=== PATIENT | male | born 1995 | race Caucasian/White ===

== ENCOUNTER 2017-01-28 20:55 | Emergency (ER) | payer OTHER ==
[~2017-01-28] VITALS: Ht 180.3 cm; Wt 65.8 kg
[2017-01-28] MEDS ORDERED: NS 1,000 ML IV ONE (21:15)
[2017-01-28] MEDS ORDERED: ONDANSETRON 4MG/2ML VIAL (J2405) IV ONE (21:15)
[2017-01-28 21:53] LABS: BASO % 0.7 % (0.0-1.0); EOS # 0.2 K/mm3 (0.0-0.50); EOS % 2.1 % (0.0-3.0); LARGE UNSTAINED CELL # 0.1 K/mm3 (0.0-0.4); LARGE UNSTAINED CELL % 1.5 % (0.0-4.0); LYMPH # 1.9 K/mm3 (1.5-6.5); LYMPH % 22.6 % (24.0-44.0); MEAN CORPUSCULAR HEMOGLOBIN 31.3 pg (27.0-33.0); MEAN CORPUSCULAR HGB CONC 33.2 g/dl (32.0-36.5); MEAN CORPUSCULAR VOLUME 94.3 fl (80.0-96.0); MONO # 0.3 K/mm3 (0.0-0.8); MONO % 4.1 % (0.0-5.0); NEUTROPHILS # 5.3 K/mm3 (1.8-7.7); PLATELET COUNT, AUTOMATED 217 k/mm3 (150-450); WHITE BLOOD COUNT 7.7 K/mm3 (4.0-10.0)
[2017-01-28] MEDS ORDERED: IBUP600T26 PO (21:54)
[2017-01-28 22:03] LABS: METHADONE URINE NEGATIVE (NEGATIVE)
[2017-01-28 22:14] LABS: ALBUMIN/GLOBULIN RATIO 1.29 (1.00-1.93); ALKALINE PHOSPHATASE 59 U/L (45-117); ALT/SGPT 17 U/L (12-78); ANION GAP 11 MEQ/L (8-16); AST/SGOT 12 U/L (15-37); BILIRUBIN,DIRECT < 0.1 MG/DL (0.0-0.2); BILIRUBIN,TOTAL 0.3 MG/DL (0.2-1.0); BLOOD UREA NITROGEN 9 MG/DL (7-18); CALCIUM LEVEL 7.9 MG/DL (8.5-10.1); CARBON DIOXIDE LEVEL 25 MEQ/L (21-32); CHLORIDE LEVEL 103 MEQ/L (98-107); CREATININE FOR GFR 0.79 MG/DL (0.70-1.30); GLOMERULAR FILTRATION RATE > 60.0 (>60); GLUCOSE, FASTING 119 MG/DL (70-105); POTASSIUM SERUM 3.5 MEQ/L (3.5-5.1); SODIUM LEVEL 139 MEQ/L (136-145); TOTAL PROTEIN 7.1 GM/DL (6.4-8.2)
[2017-01-29 02:46] VITALS: BP 104/55
== END 2017-01-29 02:50 | disposition home or self-care (01) ==
LOC: EDBD 20:55 → M ED 21:40
DX: F10.129 Alcohol abuse with intoxication, unspecified (principal); F32.9 Major depressive disorder, single episode, unspecified; F90.9 Attention-deficit hyperactivity disorder, unspecified type; F41.9 Anxiety disorder, unspecified; F42.9 Obsessive-compulsive disorder, unspecified; F43.10 Post-traumatic stress disorder, unspecified

== ENCOUNTER 2017-03-05 20:03 | Emergency (ER) | payer OTHER ==
[~2017-03-05] VITALS: Ht 180.3 cm; Wt 66.9 kg
[~2017-03-05 20:03] MED LIST: IBUP-1022 PO
[2017-03-05 21:52] VITALS: BP 137/76
--- NOTE | 2017-03-06 07:40 | REP ---
Clinical: Pain with decreased range of motion . Technique: Internal rotation, external rotation, and Y view right shoulder . Findings: No acute fracture or dislocation. The acromioclavicular and glenohumeral joints are intact. No periarticular calcifications or degenerative changes are appreciated. Sub acromial space is normal. Surrounding soft tissues are unremarkable. Impression: Normal right shoulder radiographs. Signed by Moises Kay MD 03/06/2017 07:31 A
== END 2017-03-05 22:39 | disposition home or self-care (01) ==
LOC: M ED 20:03
DX: S43.51XA Sprain of right acromioclavicular joint, initial encounter (principal); X58.XXXA Exposure to other specified factors, initial encounter; Y92.099 Unspecified place in other non-institutional residence as the place of occurrence of the external cause; Y93.9 Activity, unspecified; Y99.9 Unspecified external cause status; F32.9 Major depressive disorder, single episode, unspecified; F17.200 Nicotine dependence, unspecified, uncomplicated

== ENCOUNTER 2017-07-26 00:31 | Emergency (ER) | payer OTHER ==
[~2017-07-26] VITALS: Ht 177.8 cm; Wt 65.9 kg
[2017-07-26] MEDS ORDERED: OLOP1OPD OU (05:38)
[2017-07-26 06:24] VITALS: BP 116/73
== END 2017-07-26 06:25 | disposition home or self-care (01) ==
LOC: M ED 00:31
DX: H10.11 Acute atopic conjunctivitis, right eye (principal); F17.200 Nicotine dependence, unspecified, uncomplicated

== ENCOUNTER 2018-03-30 17:02 | Emergency (ER) | payer OTHER ==
[2018-03-30] MEDS: KETOROLAC TROMETHAMINE 10 MG TAB PO (18:35)
== END 2018-03-30 20:02 | disposition home or self-care (01) ==
LOC: M ED 17:02
DX: M25.561 Pain in right knee (principal); F32.9 Major depressive disorder, single episode, unspecified; Z72.0 Tobacco use; F12.10 Cannabis abuse, uncomplicated
CPT/HCPCS: 73564

== ENCOUNTER 2018-10-09 14:33 | Emergency (ER) | payer OTHER ==
[~2018-10-09] VITALS: Ht 175.3 cm; Wt 72.7 kg
[2018-10-09 14:33] VITALS: BP 118/69
[~2018-10-09 14:33] MED LIST changes: +DICL75TA PO; +OLOP1OPD OU
[2018-10-09] MEDS ORDERED: DERMABOND TOPICAL SKIN ADHESIVE TOP ONE (16:30)
[2018-10-09] MEDS ORDERED: KETOROLAC 60 MG/2 ML VIAL (J1885) IM ONE (16:30)
[2018-10-09] MEDS ORDERED: IBUP-1114 PO (17:18)
--- NOTE | 2018-10-10 09:59 | REP ---
RIGHT HAND SERIES: Four views of the right hand are performed and demonstrate no fracture, dislocation, or intrinsic bone disease. No radiopaque foreign body is seen. IMPRESSION: Negative exam right hand. Electronically Signed by Lexa Bosch MD 10/10/2018 10:38 P
== END 2018-10-09 17:37 | disposition home or self-care (01) ==
LOC: M ED 14:33
DX: S61.011A Laceration without foreign body of right thumb without damage to nail, initial encounter (principal); W25.XXXA Contact with sharp glass, initial encounter; Y92.89 Other specified places as the place of occurrence of the external cause; Y93.89 Activity, other specified; F17.200 Nicotine dependence, unspecified, uncomplicated
CPT/HCPCS: 12001; 73130; 96372; 99282; J1885

== ENCOUNTER → 2018-11-03 | Outpatient (REF) | payer OTHER ==
[~2018-11-03] MED LIST changes: +IBUP-1114 PO
[2018-11-03 18:51] LABS: BASO # 0.1 10^3/uL (0.0-0.2); BASO % 0.6 % (0.0-1.0); EOS # 0.4 10^3/uL (0.0-0.50); EOS % 3.8 % (0.0-3.0); HEMATOCRIT 43.9 % (42.0-52.0); HEMOGLOBIN 14.7 g/dl (13.5-17.5); LYMPH # 2.4 10^3/uL (1.5-6.5); LYMPH % 23.9 % (24.0-44.0); MEAN CORPUSCULAR HEMOGLOBIN 31.2 pg (27.0-33.0); MEAN CORPUSCULAR HGB CONC 33.5 g/dl (32.0-36.5); MEAN CORPUSCULAR VOLUME 93.2 fl (80.0-96.0); MONO # 0.8 10^3/uL (0.0-0.8); MONO % 8.1 % (0.0-5.0); NEUTROPHILS # 6.4 10^3/uL (1.8-7.7); NEUTROPHILS % 63.3 % (36.0-66.0); PLATELET COUNT, AUTOMATED 306 10^3/uL (150-450); RED BLOOD COUNT 4.71 10^6/uL (4.30-6.10); WHITE BLOOD COUNT 10.1 10^3/uL (4.0-10.0)
[2018-11-03 18:57] LABS: APPEARANCE, URINE CLEAR (CLEAR); BACTERIA, URINE AUTO NEGATIVE (NEGATIVE); BILIRUBIN, URINE AUTO NEGATIVE (NEGATIVE); BLOOD, URINE BLOOD NEGATIVE (NEGATIVE); COLOR, URINE YELLOW (YELLOW); GLUCOSE, URINE (UA) AUTO NEGATIVE (NEGATIVE); KETONE, URINE AUTO NEGATIVE (NEGATIVE); LEUKOCYTE ESTERASE, URINE AUTO NEGATIVE (NEGATIVE); MUCUS, URINE SMALL (NEGATIVE); NITRITE, URINE AUTO NEGATIVE (NEGATIVE); PROTEIN, URINE AUTO NEGATIVE (NEGATIVE); RBC, URINE AUTO 1 /HPF (0-3); SPECIFIC GRAVITY URINE AUTO 1.028 (1.002-1.035); SQUAMOUS EPITHELIAL CELL UR AU 0 /HPF (0-6); UROBILINOGEN, URINE AUTO 0.2 mg/dL (0.0-2.0); WBC, URINE AUTO 1 /HPF (0-3)
[2018-11-03 19:08] LABS: ALBUMIN 4.2 GM/DL (3.2-5.2); ALT/SGPT 19 U/L (12-78); BILIRUBIN,TOTAL 0.3 MG/DL (0.2-1.0); BLOOD UREA NITROGEN 12 MG/DL (7-18); CALCIUM LEVEL 8.6 MG/DL (8.5-10.1); CARBON DIOXIDE LEVEL 28 MEQ/L (21-32); CHLORIDE LEVEL 106 MEQ/L (98-107); CHOLESTEROL LEVEL 157 MG/DL (<200); CHOLESTEROL RISK RATIO 4.025 (<5); CREATININE FOR GFR 0.87 MG/DL (0.70-1.30); FREE T4 0.98 NG/DL (0.76-1.46); GLOMERULAR FILTRATION RATE > 60.0 (>60); GLUCOSE, FASTING 102 MG/DL (70-100); HDL CHOLESTEROL 39 MG/DL (>40); LDL CHOLESTEROL 106 MG/DL (<100); NON-HDL-C 118 MG/DL; POTASSIUM SERUM 4.1 MEQ/L (3.5-5.1); SODIUM LEVEL 141 MEQ/L (136-145); THYROID STIMULATING HORMONE 0.417 uIU/ML (0.358-3.740); TOTAL 25(OH) VITAMIN D 18.9 NG/ML (30.0-100.0); TOTAL PROTEIN 7.4 GM/DL (6.4-8.2); TRIGLYCERIDES LEVEL 62 MG/DL (<150)
[2018-11-03 19:39] LABS: HEMOGLOBIN A1c 5.2 %
[2018-11-06 00:07] LABS: Lyme Disease IgG/IgM Antibodie <0.91 ISR (0.00-0.90); Lyme Disease IgM Ab Quantitati <0.80 index (0.00-0.79)
== END ==
LOC: M LAB REF 17:02
DX: Z00.01 Encounter for general adult medical examination with abnormal findings (principal); F41.8 Other specified anxiety disorders

== ENCOUNTER 2020-01-16 21:52 | Emergency (ER) | payer MEDICAID, OTHER ==
[~2020-01-16] VITALS: Ht 193 cm; Wt 74.5 kg
[~2020-01-16 21:52] MED LIST changes: -OLOP1OPD OU; +PATA2.5S OU
[2020-01-16] MEDS ORDERED: IBUPROFEN 600MG TAB PO ONE (23:15)
[2020-01-16] MEDS ORDERED: ACET-897 PO (23:23)
[2020-01-16 23:35] VITALS: BP 112/61
--- NOTE | 2020-01-17 08:02 | REP ---
RIGHT HAND SERIES: Four views. HISTORY: Pain. Comparison radiographs October 09, 2018. FINDINGS: Four views of the right hand demonstrate impacted fractures of the distal ends of the 4th and 5th metacarpals with associated soft-tissue swelling. There is apex dorsal angulation at the fracture is visible on the lateral radiograph. No other fracture is seen. IMPRESSION: Impacted slightly angulated fractures of the distal ends of the 4th and 5th metacarpals. Electronically Signed by Jean-Claude Richards MD 01/17/2020 11:58 A
== END 2020-01-16 23:44 | disposition home or self-care (01) ==
LOC: M ED 21:52
DX: S62.304A Unspecified fracture of fourth metacarpal bone, right hand, initial encounter for closed fracture (principal); S62.306A Unspecified fracture of fifth metacarpal bone, right hand, initial encounter for closed fracture; W22.8XXA Striking against or struck by other objects, initial encounter; Y92.018 Other place in single-family (private) house as the place of occurrence of the external cause; Z88.0 Allergy status to penicillin; Z91.048 Other nonmedicinal substance allergy status

== ENCOUNTER 2023-04-07 12:31 | Inpatient (IN) | payer MEDICAID, SELFPAY ==
[~2023-04-07] VITALS: Ht 185.4 cm; Wt 72.7 kg
[~2023-04-07 12:31] MED LIST changes: +ACET-897 PO
[2023-04-07 14:13] LABS: HEMATOCRIT 42.6 % (42.0-52.0); HEMOGLOBIN 14.4 g/dl (13.5-17.5); MEAN CORPUSCULAR HEMOGLOBIN 30.8 pg (27.0-33.0); MEAN CORPUSCULAR HGB CONC 33.8 g/dl (32.0-36.5); MEAN CORPUSCULAR VOLUME 91.2 fl (80.0-96.0); PLATELET COUNT, AUTOMATED 502 10^3/uL (150-450); RED BLOOD COUNT 4.67 10^6/uL (4.30-6.10); WHITE BLOOD COUNT 12.1 10^3/uL (4.0-10.0)
[2023-04-07 14:41] LABS: AMPHETAMINES LEVEL URINE NEGATIVE (NEGATIVE); BARBITURATES URINE NEGATIVE (NEGATIVE); BENZODIAZEPINES URINE NEGATIVE (NEGATIVE); COCAINE METABOLITE URINE NEGATIVE (NEGATIVE); METHADONE URINE NEGATIVE (NEGATIVE); OPIATES URINE NEGATIVE (NEGATIVE); PHENCYCLIDINE URINE NEGATIVE (NEGATIVE)
[2023-04-07 14:44] LABS: ETHYL ALCOHOL (ETHANOL) < 0.003 % (0.000-0.010)
[2023-04-07 14:45] LABS: ACETAMINOPHEN LEVEL < 2.0 UG/ML (10.0-20.0)
[2023-04-07] MEDS ORDERED: MED REC IN PROGRESS XX SCH (14:45)
[2023-04-07 14:46] LABS: ALBUMIN 4.3 G/DL (3.2-5.2); ALKALINE PHOSPHATASE 73 U/L (46-116); ALT/SGPT 10 U/L (7.0-40); AST/SGOT < 8 U/L (<34); BILIRUBIN,DIRECT 0.2 MG/DL (<0.4); BILIRUBIN,TOTAL 0.5 MG/DL (0.3-1.2); BLOOD UREA NITROGEN 10 MG/DL (9-23); CALCIUM LEVEL 9.8 MG/DL (8.5-10.1); CARBON DIOXIDE LEVEL 25 MMOL/L (20-31); CHLORIDE LEVEL 106 MMOL/L (98-107); CREATININE FOR GFR 0.75 MG/DL (0.70-1.30); GLOMERULAR FILTRATION RATE > 60.0 (>60); GLUCOSE, FASTING 82 MG/DL (60-100); POTASSIUM SERUM 3.8 MMOL/L (3.5-5.1); SALICYLATE LEVEL < 3.0 MG/DL (<30); SODIUM LEVEL 140 MMOL/L (136-145); TOTAL PROTEIN 7.3 G/DL (5.7-8.2)
[2023-04-07 14:47] LABS: THYROID STIMULATING HORMONE 0.733 uIU/ML (0.55-4.78)
[2023-04-07] MEDS ORDERED: NASA1SPR NARES (14:49)
[2023-04-07] MEDS ORDERED: ALBU8.5H INH (14:49)
[2023-04-07] MEDS ORDERED: LEVOTAB10 PO (14:49)
[2023-04-07 14:52] LABS: CANNABINOIDS URINE POSITIVE (NEGATIVE)
[2023-04-07] MEDS ORDERED: HOME MED LIST COMPLETE! XX SCH (14:55)
[2023-04-07] MEDS ORDERED: MOM 30ML SUSPENSION UDC PO PRN (16:35)
[2023-04-07] MEDS ORDERED: OLANZapine ORAL DISINTEGRATING TAB 5MG PO PRN (16:35)
[2023-04-07] MEDS ORDERED: diphenhydrAMINE 25MG CAP PO PRN (16:35)
[2023-04-07] MEDS ORDERED: MAALOX 30 ML SUSP *UDC PO PRN (16:35)
[2023-04-07] MEDS ORDERED: IBUPROFEN 400MG TAB PO PRN (16:35)
[2023-04-07] MEDS ORDERED: traZODone 50 MG TAB PO PRN (16:35)
[2023-04-07 17:53] VITALS: BP 134/82; TEMP 97.2; O2SAT 99
[2023-04-08 06:48] VITALS: BP 90/51; TEMP 98; O2SAT 96
[2023-04-08] MEDS ORDERED: ALBUTEROL 90 MCG/ACT 8GM HFA INHALER INH PRN ×2 (08:10→09:40)
[2023-04-08] MEDS ORDERED: CETIRIZINE (ZyrTEC) 10 MG TAB PO PRN (09:40)
[2023-04-08] MEDS ORDERED: FLUTICASONE PROP 0.05% NASAL SPRAY 16 GM (FLONASE) NARES PRN (09:45)
[2023-04-08] MEDS: NICOTINE 14 MG/24 HR TRANSDERMAL TD SCH (10:08)
[2023-04-08 17:03] VITALS: BP 130/71; TEMP 98.2; O2SAT 98
[2023-04-08] MEDS: MIRTAZAPINE 15 MG TAB PO SCH (21:27)
[2023-04-08] MEDS: busPIRone 5 MG TAB PO SCH (21:27)
[2023-04-08] MEDS: PILL CUTTER 1 EACH XX PRN (21:27)
[2023-04-09 06:43] VITALS: BP 111/75; TEMP 96.8; O2SAT 97
[2023-04-09 07:31] LABS: CHOLESTEROL RISK RATIO 4.52 (<5); HDL CHOLESTEROL 32.7 MG/DL (>40); LDL CHOLESTEROL 91.9 MG/DL (<100); NON-HDL-C 115.3 MG/DL
[2023-04-09] MEDS: PILL CUTTER 1 EACH XX PRN (08:08)
[2023-04-09] MEDS: busPIRone 5 MG TAB PO SCH ×2 (08:08→21:20)
[2023-04-09] MEDS: NICOTINE 14 MG/24 HR TRANSDERMAL TD SCH (08:09)
[2023-04-09] MEDS: OMEGA-3 1000MG CAPSULE PO SCH ×2 (13:52→21:20)
[2023-04-09 18:15] VITALS: BP 137/88; TEMP 97.5; O2SAT 100
[2023-04-09] MEDS: MIRTAZAPINE 15 MG TAB PO SCH (21:20)
[2023-04-10 06:30] VITALS: BP 113/63; TEMP 97.2; O2SAT 98
[2023-04-10] MEDS: busPIRone 5 MG TAB PO SCH ×2 (08:51→21:15)
[2023-04-10] MEDS: OMEGA-3 1000MG CAPSULE PO SCH ×2 (08:51→21:15)
[2023-04-10] MEDS: NICOTINE 14 MG/24 HR TRANSDERMAL TD SCH (08:52)
[2023-04-10 18:27] VITALS: BP 133/78; TEMP 97; O2SAT 100
[2023-04-10] MEDS: ACETAMINOPHEN TAB 650MG DOSE (2X325MG) PO PRN (21:14)
[2023-04-10] MEDS: MIRTAZAPINE 15 MG TAB PO SCH (21:15)
[2023-04-11 06:25] VITALS: BP 108/63; TEMP 97.5; O2SAT 97
[2023-04-11] MEDS: busPIRone 5 MG TAB PO SCH ×2 (07:57→21:55)
[2023-04-11] MEDS: OMEGA-3 1000MG CAPSULE PO SCH ×2 (07:57→21:55)
[2023-04-11] MEDS: NICOTINE 14 MG/24 HR TRANSDERMAL TD SCH (07:58)
[2023-04-11 18:09] VITALS: BP 137/74; TEMP 97; O2SAT 98
[2023-04-11] MEDS: ACETAMINOPHEN TAB 650MG DOSE (2X325MG) PO PRN (19:08)
[2023-04-11] MEDS: MIRTAZAPINE 15 MG TAB PO SCH (21:55)
[2023-04-12 06:50] VITALS: BP 95/55; TEMP 98.4; O2SAT 98
[2023-04-12] MEDS: OMEGA-3 1000MG CAPSULE PO SCH (08:11)
[2023-04-12] MEDS: busPIRone 5 MG TAB PO SCH (08:11)
[2023-04-12] MEDS: NICOTINE 14 MG/24 HR TRANSDERMAL TD SCH (08:12)
[2023-04-12] MEDS ORDERED: MIRT-10 PO (10:25)
[2023-04-12] MEDS ORDERED: FISH1CAP26 PO (10:25)
[2023-04-12] MEDS ORDERED: NICO14PA TD (10:25)
[2023-04-12] MEDS ORDERED: BUSP1TAB PO (10:25)
== END 2023-04-12 11:53 | disposition home or self-care (01) | DRG 754 ==
LOC: M ED 12:31 → M ED INP 16:31 → M PSY 17:46
PROVIDERS: ADMIT Student in an Organized Health Care Education/Training Program; ATTEND Student in an Organized Health Care Education/Training Program
DX: F32.9 Major depressive disorder, single episode, unspecified (principal); R45.851 Suicidal ideations; F43.10 Post-traumatic stress disorder, unspecified; F60.89 Other specific personality disorders; F41.9 Anxiety disorder, unspecified; Z88.0 Allergy status to penicillin; Z79.899 Other long term (current) drug therapy; G43.909 Migraine, unspecified, not intractable, without status migrainosus; F17.200 Nicotine dependence, unspecified, uncomplicated; F84.0 Autistic disorder; F90.9 Attention-deficit hyperactivity disorder, unspecified type; J45.909 Unspecified asthma, uncomplicated; D64.9 Anemia, unspecified